=== PATIENT | male | born 2000 | race Caucasian/White ===

== ENCOUNTER 2021-10-13 19:32 | Emergency (ER) | payer OTHER ==
[2021-10-13 20:01] VITALS: BP 100/63; PULSE 69; RESP 18; TEMP 98.4; BMI 25.4
== END 2021-10-13 21:46 | disposition home or self-care (01) ==
LOC: JERFT 19:32 → JER 19:32 → JERFT 21:46
DX: N48.89 Other specified disorders of penis (principal)
CPT/HCPCS: 99282-25